=== PATIENT | male | born 1995 | race Caucasian/White ===

== ENCOUNTER 2017-08-24 15:10 | Emergency (ER) | payer OTHER ==
--- NOTE | 2017-08-24 15:32 | UC ---
Lower Extremity/Ankle HPI - HPI Summary HPI Summary: 21 YEAR OLD MALE PRESENTS WITH PAIN OF LEFT FOOT AFTER PLAYING [employer]. - History of Current Complaint Stated Complaint: LEFT FOOT INJURY Time Seen by Provider: 08/24/17 15:32 Hx Obtained From: Patient Onset/Duration: Lasting Weeks Severity Initially: Moderate Severity Currently: Moderate Pain Scale Used: 0-10 Numeric - 4 - Allergies/Home Medications Allergies/Adverse Reactions: Allergies Allergy/AdvReac Type Severity Reaction Status Date / Time No Known Allergies Allergy Verified 08/24/17 15:31 PMH/Surg Hx/FS Hx/Imm Hx Previously Healthy: Yes Review of Systems Constitutional: Negative Skin: Negative Eyes: Negative ENT: Negative Respiratory: Negative Cardiovascular: Negative Gastrointestinal: Negative Genitourinary: Negative Motor: Negative Neurovascular: Negative Musculoskeletal: Other: - LEFT FOREFOOT PAIN Neurological: Negative Psychological: Negative All Other Systems Reviewed And Are Negative: Yes Physical Exam Triage Information Reviewed: Yes Appearance: Well-Appearing Eye Exam: Normal ENT Exam: Normal Dental Exam: Normal Neck exam: Normal Neck: Positive: 1 Respiratory Exam: Normal Cardiovascular Exam: Normal Abdominal Exam: Normal Musculoskeletal: Positive: Other: - LEFT FOREFOOT PAIN Neurological Exam: Normal Psychological Exam: Normal Skin Exam: Normal Lower Extremity Course/Dx - Differential Dx/Diagnosis Provider Diagnoses: LEFT FOOT SPRAIN Discharge - Discharge Plan Condition: Stable Disposition: HOME Prescriptions: Ibuprofen TAB* [Motrin TAB* 800 MG] 800 mg PO Q8H #30 tab Patient Education Materials: Foot Sprain (ED) Referrals: Omid Rogers MD [Medical Doctor] - No Primary Care Phys,NOPCP [Primary Care Provider] -
[2017-08-24 15:34] VITALS: BP 107/59
--- NOTE | 2017-08-24 16:30 | RAD ---
INDICATION: Pain at the left third, fourth and fifth toes after being "hit with lacrosse ball 2 days earlier". COMPARISON: None. TECHNIQUE: 3 views of the left foot were obtained. FINDINGS: The adequately corticated bones are properly aligned. Joint spaces appear maintained. No fracture, dislocation or focal bony abnormality is seen. IMPRESSION: Normal radiograph of the left foot. If the patient's symptoms persist, follow-up imaging is recommended.
== END 2017-08-24 16:42 | disposition home or self-care (01) ==
LOC: UCCORT 15:10
DX: S93.602A Unspecified sprain of left foot, initial encounter (principal); X58.XXXA Exposure to other specified factors, initial encounter; Y93.65 Activity, lacrosse and field hockey; Y92.9 Unspecified place or not applicable
CPT/HCPCS: 99202; G0463